=== PATIENT | female | born 1950 | race Caucasian/White ===

== ENCOUNTER 2020-05-26 18:52 | Outpatient (CLI) | payer MEDICARE, MEDICAID ==
[2020-03-16 12:18] VITALS: BMI 37.4
[~2020-05-26 18:52] MED LIST: CELEXA40 MG PO; COZAAR25 MG PO; DEXAMETHASONE2 MG PO; DULERA 100 MCG8.8 GM INH; FARXIGA10 MG PO; FEXOFENADINE HC60 MG PO; FLORAJEN3 CAPS460 MG PO; FOLIC ACID1 MG PO; FUROSEMIDE20 MG PO; GLUCOPHAGE500 MG PO; HYDROCHLOROTHIA25 MG PO; JANUVIA100 MG PO; K-TAB10 MEQ PO; LATUDA40 MG PO; LYRICA100 MG PO; MELATONIN 3 MG1 TAB PO; MOBIC7.5 MG PO; MUCINEX600 MG PO; OMEPRAZOLE40 MG PO; OMNICEF300 MG PO; PREDNISONE5 MG PO; PROMETRIUM200 MG PO; PROPRANOLOL HCL20 MG PO; SYNTHROID125 MCG PO; TESSALON PERLE100 MG PO; VENTOLIN HFA [SP8 GM INH; VITAMIN C PO; VITAMIN D325 MC1 PO; ZINC-220220 MG PO
== END 2020-05-26 23:59 | disposition home or self-care (01) ==
LOC: D.MAMMO 18:52
PROVIDERS: ATTEND Family Medicine
DX: Z12.31 Encounter for screening mammogram for malignant neoplasm of breast (principal)